=== PATIENT | male | born 2000 | race Hispanic/Latino ===

== ENCOUNTER 2025-04-08 18:57 | Emergency (ER) | payer MEDICARE ==
[~2025-04-08] VITALS: Ht 180.3 cm; Wt 138.3 kg
[2025-04-08] MEDS ORDERED: ACETAMINOPHEN 325 MG TAB ONE (19:37)
[2025-04-08] MEDS: ACETAMINOPHEN 325 MG TAB PO ONE (19:47)
[2025-04-08 20:02] LABS: CORONAVIRUS COVID-19 AG NEGATIVE (NEGATIVE)
[2025-04-08 21:49] VITALS: PULSE 94; RESP 16; TEMP 99.6; O2SAT 100
== END 2025-04-08 22:15 | disposition home or self-care (01) ==
LOC: ER 21:52
DX: R50.9 Fever, unspecified (principal); A08.4 Viral intestinal infection, unspecified; R10.13 Epigastric pain; Z11.52 Encounter for screening for COVID-19; F17.210 Nicotine dependence, cigarettes, uncomplicated
CPT/HCPCS: 99283